=== PATIENT | male | born 1980 | race Caucasian/White ===

== ENCOUNTER 2016-08-09 19:21 | Emergency (ER) | payer OTHER ==
[2016-08-09] MEDS ORDERED: DIPHENHYDRAMINE 50 MG/ML VIAL ONE (20:39)
[2016-08-09] MEDS ORDERED: LABETALOL HCL 100 MG/20 ML VIAL IV ONE (20:39)
[2016-08-09] MEDS ORDERED: LORazepam 2 MG/ML INJ ONE (20:40)
[2016-08-09 20:45] LABS: BASOPHIL# 0.1 X 10^3uL (0.0-0.1); BASOPHILS 0.9 % (0.0-2.0); EOSINOPHILS 0.6 % (0.0-6.0); EOSINOPHILS# 0.1 X 10^3uL (0.0-0.4); HEMOGLOBIN 18.6 g/dL (14.0-18.0); LYMPHOCYTES 21.1 % (20.0-40.0); LYMPHOCYTES# 2.1 X 10^3uL (0.8-3.8); MEAN CELL VOLUME 86.4 fL (80.0-100.0); MEAN CORPUS. HGB CONCENTRATION 33.3 g/dL (32.0-36.0); MEAN CORPUSCULAR HEMOGLOBIN 28.7 pg (29.0-35.0); MEAN PLATELET VOLUME 7.6 fL (7.4-10.4); MONOCYTES 5.2 % (2.0-10.0); MONOCYTES# 0.5 X 10^3uL (0.2-1.0); NEUTROPHILS 72.2 % (54.0-75.0); NEUTROPHILS# 7.2 X 10^3uL (2.6-6.7); PLATELET COUNT 243 X 10^3uL (130-440); RED BLOOD COUNT 6.49 X 10^6uL (4.20-6.10); RED CELL DISTRIBUTION WIDTH 12.3 % (11.5-14.5)
[2016-08-09 20:51] LABS: A/G RATIO 1.4; ALBUMIN 4.8 g/dL (3.5-5.0); ALKALINE PHOSPHATASE 71 U/L (38-126); ALT 39 U/L (21-72); AST 33 U/L (17-59); BILIRUBIN, TOTAL 1.6 mg/dL (0.2-1.3); BLOOD UREA NITROGEN 14 mg/dL (9-20); CALCIUM 10.5 mg/dL (8.4-10.2); CHLORIDE 107 mmol/L (98-107); EST GLOMERULAR FILTRATION RATE > 60 mL/min; GLUCOSE 99 mg/dL (70-100); MAGNESIUM 2.2 mg/dL (1.6-2.3); POTASSIUM 4.1 mmol/L (3.5-5.1); SODIUM 140 mmol/L (137-145); TOTAL PROTEIN 8.3 g/dL (6.3-8.2)
--- NOTE | 2016-08-10 00:40 | ER NURSING DOCUMENTATION ---
Nurse's Notes [facility] Name:Ryley Braswell Age:36 yrs Sex:Male :1980 Arrival Date:08/09/2016 Time:19:21 BedD-1 Private MD: Diagnosis:Acute Headache Presentation: 08/09 19:24 Acuity: AJ 3 sc1 19:37 Presenting complaint: Patient states: ADMITTED TO [facility] TODAY AND IS UPSET WITH THE CARE GIVEN TO HIM. STATES HE HAS A BERGERON FROM HIS INTERCRANIAL HYPERTENSION. HAS NOT SLEPT IN 4 DAYS. ADMITS TO USING BATH SALTS AND ALCOHOL 24 HRS AGO. HAS BEEN TO REHAB IN THE PAST. DID NOT WANT TO TAKE THE MEDICATIONS THAT THEY OFFERED . Transition of care: [place]. Notified ED Physician of patient's arrival and CC. 19:37 Method Of Arrival: Private Vehicle Triage Assessment: 19:59 Headache History: The patient has had previous headaches and this one is similar to lc previous episodes. General: Appears distressed, uncomfortable, Behavior is agitated, anxious, cooperative. Pain: Complains of pain in GENERAL BERGERON Pain currently is 8 out of 10 on a pain scale. Quality of pain is described as throbbing, Pain began 1 day ago Also complains of sleeplessness. Neuro: Level of Consciousness is awake, alert, Oriented to person, place, time, event, Gait is steady, Speech is normal. Derm: Skin is pink, warm & dry. Historical: - Allergies: No known drug Allergies; - Home Meds: 1. BP AND CHOLESTEROL MED - PMHx: Hypertension; - PSHx: None; - Tetanus: unknown. - Ebola Screening: : Patient denies travel to an Ebola-affected area in the 21 days before illness onset. No symptoms or risks identified at this time. . - Immunization history: Flu Vaccine unknown. - Social history: Smoking status: Patient states was never smoker of tobacco. Patient uses alcohol street drugs, BATH SALTS. Screenin:06 Infectious Disease Risk None. Abuse screen: Denies threats or abuse. Denies injuries lc from another. HX OF DRUG AND ALCOHOL ABUSE. Nutritional screening: No deficits noted. Assessment: 20:06 See Triage Assessment done by same RN. Pain: Complains of pain in BERGERON. Neuro: Level of Consciousness is awake, alert. 21:04 Reassessment: STILL ANXIOUS AND REPEATING THAT HE WANTS US TO CURE HIS BERGERON WITH A SPINAL lc TAP, WHICH HAS BEEN DONE IN THE PAST. [facility] CONTACTED FOR RECENT RECORDS.. 22:54 Reassessment: REMAINS ANXIOUS. MULTIPLE HOSPITALS CONTACTED AND NO ONE HAS TREATED HIS lc INTERCRANIAL HYPERTENSION, KEEPS PACING IN THE ROOM, IV FLUIDS INFUSING. . 23:21 Reassessment: PULLED IV OUT, STATED IT WASN'T DOING ANYTHING. DRESSING APPLIED. NOW diomedes REQUESTING TO LEAVE THE ED. NOTIFIED,. 23:33 Reassessment: PATIENT LEFT ED, STATES HE IS GOING BACK TO [employer] TO GET HIS CAR. MD hercules AWARE. [facility] CALLED FOR UPDATE.. Vital Signs: 19:50 BP 181 / 127; Pulse 124; Resp 18; Temp 98.8; Pulse Ox 94% on R/A; Weight 86.18 kg; lc Height 5 ft. 11 in. (180.34 cm); Pain 8/10; 20:39 BP 145 / 109 (auto/); lc 20:39 Pulse 116; Resp 16; Pain 7/10; lc 22:00 BP 141 / 93 (auto/); Pulse 116; Resp 16; Pulse Ox 95% on R/A; Pain 7/10; lc 19:50 Body Mass Index 26.50 (86.18 kg, 180.34 cm) ED Course: 19:23 Patient arrived in ED. em3 19:24 Triage completed. sc1 19:26 Jermaine Dumas MD is Attending Physician. jm 19:30 Luz Stover, RN is Primary Nurse. 20:07 Valuables Remains with patient Patient has correct armband on for positive lc identification. Bed in low position. Call light in reach. Diet: Patient given juice. Patient given water. 20:28 Inserted peripheral IV: 20 gauge in left hand. bw2 Administered Medications: 20:30 Drug: Labetalol 20 mg; Route: IVP; Infused Over: 2 mins; Site: left hand; 22:01 Follow up: Response: Blood pressure is lowered 20:30 Drug: NS 0.9% 1000 ml; Route: IV; Rate: bolus; Site: left hand; 22:00 Follow up: IV Status: Completed infusion; IV Intake: 1000ml 20:35 Drug: Ativan 1 mg; Route: IVP; Infused Over: 2 mins; Site: left hand; 22:01 Follow up: Response: No change in condition lc 20:40 Drug: Phenergan 12.5 mg; Route: IVP; Infused Over: 2 mins; Site: left hand; lc 22:01 Follow up: Response: Nausea is decreased lc 20:44 Drug: Benadryl 12.5 mg; Route: IVP; Infused Over: 2 mins; Site: left hand; lc 22:02 Follow up: Response: No change in condition lc 22:00 Drug: NS 0.9% 1000 ml; Route: IV; Rate: bolus; Infused Over: 1 hrs; Site: left hand; lc 23:35 Follow up: IV Status: Completed infusion; IV Intake: 700ml lc Intake: 22:00 IV: 1000ml; Total: 1000ml. lc 23:35 IV: 700ml; Total: 1700ml. Outcome: 23:51 Discharge ordered by . branden 23:51 Discharged to TOOK A CAB THERE 23:51 Condition: stable 23:51 Discharge Assessment: STILL REMAINS ANXIOUS, VSS 23:51 Discharge instructions given to FAXED TO [facility] Instructed on discharge instructions, follow up and referral plans. 08/10 00:39 Patient left the ED. Signatures: Luz Stover RN RN lc Campbell, Sandy, RN RN sc1 Jermaine Dumas MD MD jm Meiklejohn, Eric [facility] Karen Zhang 2
--- NOTE | 2016-08-10 00:40 | ER PHYSICIAN DOCUMENTATION ---
Physician Documentation [facility] Name:Ryley Braswell Age:36 yrs Sex:Male :1980 Arrival Date:08/09/2016 Time:19:21 BedD-1 Private MD: Jermaine Pretty Disposition: 08/09/16 23:51 Discharged to [facility]. Impression: Acute Headache. - Condition is Undetermined. - Discharge Instructions: HEADACHE, Unspecified, AMPHETAMINE ABUSE - DRUG ABUSE, General. - Medical Reconciliation form form. - Follow up: Private Physician; When: As needed; Reason: Continuance of care. - Problem is new. - Symptoms have improved. HPI: 08/09 20:49 This 36 yrs old Male presents to ER via Private Vehicle with complaints of jm Headache. 20:49 The patient complains of pain to the top of head. The patient describes the headache as jm throbbing. Onset: The symptoms/episode began/occurred today. Associated signs and symptoms: Pertinent negatives: fever, sinus congestion. Severity of symptoms: in the emergency department the pain is unchanged. Headache History: The patient has had previous headaches and this one is similar to previous episodes. the symptoms are aggravated by nothing. The patient has experienced similar episodes in the past, and the symptoms today are exactly the same, to when the patient was apparently diagnosed with Intercranial HTN. . The patient has not recently seen a physician. Pt at [facility] for Bath Salt use and ETOH. Pt was there and became very upset about the meds they were using to treat his addictions and sx. He was c/o of BERGERON and then noted his elevated BP. He said he had a medical emergency with his Intracranial HTN and so they sent him here. . Historical: - Allergies: No known drug Allergies; - Home Meds: 1. BP AND CHOLESTEROL MED - PMHx: Hypertension; - PSHx: None; - Tetanus: unknown. - Ebola Screening: : Patient denies travel to an Ebola-affected area in the 21 days before illness onset. No symptoms or risks identified at this time. . - Immunization history: Flu Vaccine unknown. - Social history: Smoking status: Patient states was never smoker of tobacco. Patient uses alcohol street drugs, BATH SALTS. ROS: 21:00 Constitutional: Negative for fever. jm 21:00 Neck: Negative for stiffness. 21:00 Cardiovascular: Negative for chest pain, palpitations. 21:00 Respiratory: Negative for cough, shortness of breath. 21:00 Neuro: Positive for headache. 21:00 Psych: Positive for anxiety, drug dependence, alcohol dependence, insomnia. Exam: 21:03 Constitutional: The patient appears alert, awake. 21:03 Eyes: Pupils: equal, round, and reactive to light and accomodation, Extraocular movements: intact throughout, Conjunctiva: normal, funduscopic exam reveals discs that are sharp, no appreciated papilledema. 21:03 Neck: Thyroid: appears normal, ROM/movement: is normal. 21:03 Cardiovascular: Rate: tachycardic, Rhythm: regular. 21:03 Abdomen/GI: Bowel sounds: normal, Palpation: abdomen is soft and non-tender. 21:03 Neuro: Motor: is normal, Gait: is steady. 21:03 Psych: Behavior/mood is anxious, angry, inappropriate for age, Affect is animated, Judgement / Insight is impaired. Delusions/hallucinations are present and described as Feels like [facility] is harming him by giving him B1. . Vital Signs: 19:50 BP 181 / 127; Pulse 124; Resp 18; Temp 98.8; Pulse Ox 94% on R/A; Weight 86.18 kg; lc Height 5 ft. 11 in. (180.34 cm); Pain 8/10; 20:39 BP 145 / 109 (auto/); lc 20:39 Pulse 116; Resp 16; Pain 7/10; lc 22:00 BP 141 / 93 (auto/); Pulse 116; Resp 16; Pulse Ox 95% on R/A; Pain 7/10; lc 19:50 Body Mass Index 26.50 (86.18 kg, 180.34 cm) MDM: 19:26 Patient medically screened. 08/10 03:30 Differential diagnosis: pseudo tumor. Neurological re-evaluation: normal neurological exam including cranial nerves, orientation, mentation, motor and sensory exam, cerebellar testing, GCS normal, and normal gait. 03:30 Data reviewed: vital signs, nurses notes, lab test result(s), and as a result, I will continue to observe the patient. Counseling: I had a detailed discussion with the patient and/or guardian regarding: the historical points, exam findings, and any diagnostic results supporting the discharge/admit diagnosis, the need for outpatient follow up, with the patient's primary care provider. Medication response: The patient's symptoms have improved. ED course: Pt keeps saying he needs an LP for his headache due to his intracranial hypertension. PT states that is the only thing that will help his BERGERON. Pt listed 3 different hospitals where an ER doctor performed an LP for his BERGERON; [facility], [facility], and [facility]. I called all 3 hospitals to have them fax me the ER visit and each hospital said they had never seen him for this. I finally said that I would do the LP, but the ER was very busy, so he would have to weight. Pt said he would do blind by then. He was clearly still high on bath salts. I told him I would look in his fundus to determine if he had papiledema. Pt absolutely did not have this, so I said I would still do the LP but he must wait. Pt decided to leave at this point. . 08/09 20:49 Order name: CBC AUTO DIF, MDIF/RMOR IF IND; Complete Time: 22:23 EDSC 08/09 20:56 Order name: COMPREHENSIVE METABOLIC PANEL; Complete Time: 22:23 EDSC 08/09 20:56 Order name: MAGNESIUM; Complete Time: 22:23 EDSC 08/09 20:13 Order name: Iv Saline Lock; Complete Time: 22:03 08/09 20:13 Order name: Pulse Ox Continuous; Complete Time: 22:03 Dispensed Medications: 08/09 20:30 Drug: Labetalol 20 mg; Route: IVP; Infused Over: 2 mins; Site: left hand; lc 22:01 Follow up: Response: Blood pressure is lowered lc 20:30 Drug: NS 0.9% 1000 ml; Route: IV; Rate: bolus; Site: left hand; lc 22:00 Follow up: IV Status: Completed infusion; IV Intake: 1000ml lc 20:35 Drug: Ativan 1 mg; Route: IVP; Infused Over: 2 mins; Site: left hand; lc 22:01 Follow up: Response: No change in condition lc 20:40 Drug: Phenergan 12.5 mg; Route: IVP; Infused Over: 2 mins; Site: left hand; lc 22:01 Follow up: Response: Nausea is decreased lc 20:44 Drug: Benadryl 12.5 mg; Route: IVP; Infused Over: 2 mins; Site: left hand; 22:02 Follow up: Response: No change in condition 22:00 Drug: NS 0.9% 1000 ml; Route: IV; Rate: bolus; Infused Over: 1 hrs; Site: left hand; 23:35 Follow up: IV Status: Completed infusion; IV Intake: 700ml lc Signatures: Luz Stover RN RN Jermaine Recinos MD MD
== END 2016-08-10 00:39 ==
LOC: EEVIPCON 19:21 → ER 19:21
DX: R51 Headache (principal); I10 Essential (primary) hypertension; R45.4 Irritability and anger; F22 Delusional disorders; F10.20 Alcohol dependence, uncomplicated; F15.10 Other stimulant abuse, uncomplicated; Z79.899 Other long term (current) drug therapy
CPT/HCPCS: 80053; 83735; 85025; 96361; 96374; 96375; 99283; J1200; J2060; J2550